=== PATIENT | female | born 1975 | race Caucasian/White ===

== ENCOUNTER 2016-07-07 02:16 | Observation (INO) | payer OTHER ==
[2016-07-07] MEDS ORDERED: ONDANSETRON 4 MG/2 ML VIAL ONE ×2 (02:39→07:14)
[2016-07-07 02:46] LABS: % IMMATURE GRANULYOCYTES 0.5 % (0.0-1.1); ABSOLUTE IMMATURE GRANULOCYTES 0.08 10^3/uL (0.00-0.10); ADD DIFF? NO; ADD MORPH? NO; ADD SCAN? NO; ATYPICAL LYMPHOCYTE FLAG 10 (0-99); FRAGMENT RBC FLAG 0 (0-99); HEMATOCRIT 39.3 % (38.0-47.0); HEMOGLOBIN 13.2 g/dL (12.6-16.3); LEFT SHIFT FLG 0 (0-99); LIPEMIA HEMOLYSIS FLAG 80 (0-99); MEAN CELL HEMOGLOBIN 32.4 pg (27.9-34.1); MEAN CELL HEMOGLOBIN CONCENTR. 33.6 g/dL (32.4-36.7); MEAN CELL VOLUME 96.3 fL (81.5-99.8); MEAN PLATELET VOLUME 10.5 fL (8.7-11.7); PLATELET CLUMPS FLAG 10 (0-99); PLATELET COUNT 220 10^3/uL (150-400); RED BLOOD CELL COUNT 4.08 10^6/uL (4.18-5.33); RED CELL DISTRIBUTION WIDTH 12.2 % (11.5-15.2)
[2016-07-07] MEDS ORDERED: NS 1,000 ML IV ONE (02:47)
[2016-07-07] MEDS ORDERED: ONDANSETRON 4 MG/2 ML VIAL IVP ONE (02:47)
[2016-07-07 02:58] LABS: ALANINE AMINOTRANSFERASE 30 IU/L (9-52); ALBUMIN 4.1 g/dL (3.5-5.0); ALKALINE PHOSPHATASE 41 IU/L (38-126); ANION GAP 12 mEq/L (8-16); ASPARTATE AMINOTRANSFERASE 18 IU/L (14-46); BILIRUBIN,TOTAL 0.6 mg/dL (0.1-1.4); BILIRUBIN-CONJUGATED 0.3 mg/dL (0.0-0.5); BILIRUBIN-UNCONJUGATED 0.3 mg/dL (0.0-1.1); CALCIUM 8.8 mg/dL (8.5-10.4); CARBON DIOXIDE 24 mEq/l (22-31); CHLORIDE 105 mEq/L (97-110); CREATININE 0.7 mg/dL (0.6-1.0); GLOMERULAR FILTRATION RATE > 60; GLUCOSE 134 mg/dL (70-100); SODIUM 141 mEq/L (134-144); TOTAL PROTEIN 6.8 g/dL (6.3-8.2)
[2016-07-07] MEDS ORDERED: KETOROLAC 30 MG/1 ML SDV IVP ONE (03:34)
[2016-07-07] MEDS ORDERED: HYDROmorphONE/DILAUDID 1 MG/ML SYR IVP PRN ×2 (03:34→07:45)
--- NOTE | 2016-07-07 04:11 | EDPHY ---
H & P Stated Complaint: c/o upper R abd pain since yesterday afternoon, diarrhea starting last pm Time Seen by Provider: 07/07/16 02:55 HPI/ROS: HPI The patient presents with right-sided abdominal pain which has been present since about 3:00 p.m. yesterday. The pain is burning and throbbing in nature. It began in her epigastrium, then radiated to a right upper quadrant and back. Now she is feeling it in the lower part of her right abdomen as well. The pain has been constant, is moderate in severity, is not improved with Gas-X or Pepto- Bismol. She has had nausea and diarrhea with this. She has no prior history of similar pain.. REVIEW OF SYSTEMS Constitutional: No fever, no chills. Eyes: No discharge. ENT: No sore throat. Cardiovascular: No chest pain, no palpitations. Respiratory: No cough, no shortness of breath. Gastrointestinal: No abdominal pain, no vomiting. Genitourinary: No hematuria. Musculoskeletal: No back pain. Skin: No rashes. Neurological: No headache. PMHx: 2 prior C-sections Soc Hx: Lives at home with her family PHYSICAL General Appearance: Alert, no distress Eyes: Pupils equal and round no pallor or injection ENT, Mouth: Mucous membranes moist Respiratory: There are no retractions, lungs are clear to auscultation Cardiovascular: Regular rate and rhythm Gastrointestinal: Abdomen is soft with tenderness in her right upper and right lower quadrants, more prominent in right lower quadrant without rebound or guarding Neurological: A&O, moves all extremities Skin: Warm and dry, no rashes Musculoskeletal: Neck is supple non tender Extremities: symmetrical, full range of motion Psychiatric: Patient is oriented X 3, there is no agitation Source: Patient Exam Limitations: No limitations - Personal History LMP (Females 10-55): IUD In Place Tetanus Vaccine Date: 04/2014 - Medical/Surgical History Hx Asthma: No Hx Chronic Respiratory Disease: No Hx Diabetes: No Hx Cardiac Disease: No Hx Renal Disease: No Hx Cirrhosis: No Hx Alcoholism: No Hx HIV/AIDS: No Hx Splenectomy or Spleen Trauma: No Other PMH: C/S 2009 for abruption, Hypothyroid, ruptured ectopic 2002 - Social History Smoking Status: Never smoked Constitutional: Initial Vital Signs Temperature (C) 36.6 C 07/07/16 02:19 Heart Rate 77 03/28/17 02:19 Respiratory Rate 16 07/07/16 02:19 Blood Pressure 121/79 H 07/07/16 02:19 O2 Sat (%) 94 07/07/16 02:19 O2 Delivery Mode Room Air Allergies/Adverse Reactions: egg [eggs] Allergy (Verified 07/07/16 02:23) Milk Containing Products [dairy] Allergy (Verified 07/07/16 02:23) wheat Allergy (Verified 07/07/16 02:23) Home Medications: Medication Instructions Recorded Cytomel 12.5 mcg PO DAILY 07/04/14 Synthroid 125 mcg (RX) 125 mcg PO DAILY 07/04/14 Medical Decision Making - Diagnostics Imaging: Right upper quadrant and right lower quadrant ultrasounds reveal no visualized appendix, normal appearing gallbladder, discussed with Dr. Childs of Radiology. CT scan abdomen pelvis with IV contrast demonstrates acute appendicitis with an enlarged appendix with fat stranding, discussed with Dr. Childs of Radiology. ED Course/Re-evaluation: In the emergency room, labs were checked and revealed a leukocytosis. Patient was given IV fluids and pain medicines with improvement in her symptoms. Ultrasound was initially performed and was unrevealing, thus decision was made for CT scan. This did demonstrate appendicitis. I discussed these findings with Dr. Mikal Galicia of General surgery. We plan to admit the patient for likely appendectomy, I have given her antibiotics here and ordered her a bed in the hospital. Differential Diagnosis: This is a 41-year-old healthy female who presents from home with several hours of right upper and lower quadrant abdominal pain associated with nausea and diarrhea. Differential diagnosis includes appendicitis, biliary colic, cholecystitis, mesenteric adenitis. - Data Points Laboratory Results: Laboratory Results 07/07/16 02:35 07/07/16 02:35 07/07/16 07/07/16 02:35 02:35 WBC 15.59 10^3/uL H 10^3/uL (3.80-9.50) RBC 4.08 10^6/uL L 10^6/uL (4.18-5.33) Hgb 13.2 g/dL g/dL (12.6-16.3) Hct 39.3 % % (38.0-47.0) MCV 96.3 fL fL (81.5-99.8) MCH 32.4 pg pg (27.9-34.1) MCHC 33.6 g/dL g/dL (32.4-36.7) RDW 12.2 % % (11.5-15.2) Plt Count 220 10^3/uL 10^3/uL (150-400) MPV 10.5 fL fL (8.7-11.7) Neut % (Auto) 83.8 % H % (39.3-74.2) Lymph % (Auto) 9.9 % L % (15.0-45.0) Jewell % (Auto) 5.1 % % (4.5-13.0) Eos % (Auto) 0.4 % L % (0.6-7.6) Baso % (Auto) 0.3 % % (0.3-1.7) Nucleat RBC Rel Count 0.0 % % (0.0-0.2) Absolute Neuts (auto) 13.05 10^3/uL H 10^3/uL (1.70-6.50) Absolute Lymphs (auto) 1.55 10^3/uL 10^3/uL (1.00-3.00) Absolute Monos (auto) 0.80 10^3/uL 10^3/uL (0.30-0.80) Absolute Eos (auto) 0.06 10^3/uL 10^3/uL (0.03-0.40) Absolute Basos (auto) 0.05 10^3/uL 10^3/uL (0.02-0.10) Absolute Nucleated RBC 0.00 10^3/uL 10^3/uL (0-0.01) Immature Gran % 0.5 % % (0.0-1.1) Immature Gran # 0.08 10^3/uL 10^3/uL (0.00-0.10) Sodium 141 mEq/L mEq/L (134-144) Potassium 4.0 mEq/L mEq/L (3.5-5.2) Chloride 105 mEq/L mEq/L (97-110) Carbon Dioxide 24 mEq/l mEq/l (22-31) Anion Gap 12 mEq/L mEq/L (8-16) BUN 12 mg/dL mg/dL (7-23) Creatinine 0.7 mg/dL mg/dL (0.6-1.0) Estimated GFR > 60 Glucose 134 mg/dL H mg/dL (70-100) Calcium 8.8 mg/dL mg/dL (8.5-10.4) Total Bilirubin 0.6 mg/dL mg/dL (0.1-1.4) Conjugated Bilirubin 0.3 mg/dL mg/dL (0.0-0.5) Unconjugated Bilirubin 0.3 mg/dL mg/dL (0.0-1.1) AST 18 IU/L IU/L (14-46) ALT 30 IU/L IU/L (9-52) Alkaline Phosphatase 41 IU/L IU/L (38-126) Total Protein 6.8 g/dL g/dL (6.3-8.2) Albumin 4.1 g/dL g/dL (3.5-5.0) Lipase 67.0 IU/L IU/L (23-300) Medications Given: Discontinued Medications Hydromorphone HCl (Dilaudid) 0.5 mg IVP EDNOW ONE Stop: 07/07/16 05:34 Last Admin: 07/07/16 05:30 Dose: 0.5 mg Sodium Chloride (Ns) 1,000 mls @ 0 mls/hr IV ONCE ONE PRN Reason: Wide Open Stop: 07/07/16 02:48 Last Admin: 07/07/16 02:48 Dose: 1,000 mls Ertapenem 1 gm/ Sodium (Chloride) 100 mls @ 200 mls/hr IV EDNOW ONE PRN Reason: Protocol Stop: 07/07/16 05:40 Last Admin: 07/07/16 05:50 Dose: 100 mls Ketorolac Tromethamine (Toradol) 15 mg IVP EDNOW ONE Stop: 07/07/16 03:35 Last Admin: 07/07/16 03:50 Dose: 15 mg Ondansetron HCl (Zofran) 4 mg IVP EDNOW ONE Stop: 07/07/16 02:48 Last Admin: 07/07/16 02:48 Dose: 4 mg Departure - Departure Disposition: To OP Cath/Surgery Clinical Impression: Acute appendicitis Condition: Good
[2016-07-07] MEDS ORDERED: IOPAMIDOL (ISOVUE-300) 100 ML BTL IV ONE (04:43)
[2016-07-07] MEDS ORDERED: ERTAPENEM 1 GM in NS 100 ML IV ONE (05:11)
[2016-07-07] MEDS ORDERED: HYDROmorphONE/DILAUDID 1 MG/ML SYR IVP ONE (05:33)
[2016-07-07] MEDS ORDERED: BUPIVACAINE 0.5% 30 ML SDV ONE (05:50)
[2016-07-07] MEDS ORDERED: PROPOFOL 200 MG/20 ML VIAL ONE (06:32)
[2016-07-07] MEDS ORDERED: fentaNYL 100 MCG/2 ML INJ ONE (06:32)
[2016-07-07] MEDS ORDERED: GLYCOPYRROLATE 0.2 MG/1 ML VIAL ONE ×2 (07:13→07:20)
[2016-07-07] MEDS ORDERED: NEOSTIGMINE METHYLSULFATE 5 MG/5 ML SYR ONE (07:13)
[2016-07-07] MEDS ORDERED: LIDOCAINE 2% 5 ML SDV ONE (07:15)
[2016-07-07] MEDS ORDERED: ROCURONIUM 50 MG/5 ML VIAL ONE (07:15)
--- NOTE | 2016-07-07 07:37 | GHP ---
[f rep st] PREOP HISTORY AND PHYSICAL DATE OF ADMISSION: 07/07/2016 HISTORY OF PRESENT ILLNESS: The patient is a 41-year-old female, who is admitted at this time for l aparoscopic appendectomy. She has had pain for over 24 hours, localized to the right lower quadrant . CT scan is positive for appendicitis. Her white count is 15,000. She has had no emesis and no a bdominal trauma. She fully understands and accepts the risks of surgery and requests that we procee d. PAST MEDICAL HISTORY: Includes 2 C sections, an ectopic . No other major surgeries. Says she does have hypothyroidism. REVIEW OF SYSTEMS: No major medical problems, except related to the hypothyroidism. PRESENT MEDICATIONS: Cytomel and Synthroid. ALLERGIES: None to medications. PHYSICAL EXAMINATION: An alert 41-year-old female, in no acute distress. Her head and neck exam is benign without icterus or adenopathy. CHEST: Clear to auscultation and percussion. CARDIAC: Reg ular rhythm. ABDOMEN: Soft. She is tender in the right lower quadrant with some guarding. There are no masses and no hernias. EXTREMITIES: Benign with full pulses. IMPRESSION: Acute appendicitis. PLAN: Laparoscopic appendectomy. Again, the risks and options including alternate diagnosis and co nversion to an open procedure have been fully discussed, and she wishes to proceed. /[id number]/MODL
[2016-07-07] MEDS ORDERED: ONDANSETRON 4 MG/2 ML VIAL IVP PRN (07:45)
--- NOTE | 2016-07-07 07:46 | POSTOPPROG ---
Post Op Note Date of Operation: 07/07/16 Surgeon: Zak Galicia Anesthesiologist: MARY ANN Anesthesia: GET(General Endotracheal) Pre-op Diagnosis: ACUTE APPENDICITIS Post-op Diagnosis: SAME Indication: RLQ PAIN Procedure: LAP APPE Findings: ACUTE NONPERFORATED APPE Inf/Abcess present in the surg proc area at time of surgery?: Yes Depth: Organ Space EBL: Minimal Complications: 0 Specimen(s): APPENDIX
[2016-07-07 08:19] VITALS: RESP 16
[2016-07-07] MEDS: HYDROCODONE/APAP 5/325 TAB PO PRN ×2 (09:24→16:15)
[2016-07-07] MEDS ORDERED: KETOROLAC 15 MG/1 ML SDV IVP SCH (12:00)
[2016-07-07 15:31] VITALS: BP 96/60; PULSE 103; TEMP 98.1; O2SAT 91
== END 2016-07-07 17:15 | disposition home or self-care (01) ==
LOC: INTOOBSV 05:12 → F3E 08:10
PROVIDERS: ADMIT Surgery; ATTEND Surgery
PROC: 0DTJ4ZZ Resection of Appendix, Percutaneous Endoscopic Approach (ICD-10-PCS; principal; 2016-07-07 06:30)
DX: K35.80 Unspecified acute appendicitis (principal); E03.9 Hypothyroidism, unspecified
CPT/HCPCS: 44970; 74177; 76705; 76857; G0378; 96365; J1170; J1335; J1885; J2405; J2704; J2710; J3010; Q9967